=== PATIENT | male | born 1970 | race Two or more races ===

== ENCOUNTER → 2025-09-18 | Emergency (ER) | payer BC ==
[~2025-09-18] VITALS: Ht 175.3 cm; Wt 88.5 kg
[~2025-09-18] MED LIST: BUDESONIDE 0.5 MG/2 ML AMPUL.NEB IH ONE; GUAIFEN/DEXTROMETHORPHAN/PE 10 ML BLIST.PACK PO ONE; GUAIFENESIN 200 MG/10 ML BLIST.PACK PO ONE; IPRATROPIUM/ALBUTEROL SULFATE 3 ML AMPUL.NEB IH SCH; MUCUS ER1200 MG PO; PREDNISONE20 MG PO; TAMIFLU45 MG PO; TUSSIN15 MG/5 M1 PO
[2025-09-18 11:27] LABS: BASO % 0.5 % (0.1-1.2); EOS # 0.25 (0.04-0.54); EOS % 2.7 % (0.7-7.0); LYMPH # 2.96 (1.18-3.74); LYMPH % 32.2 % (19.3-53.1); MEAN PLATELET VOLUME 8.90 fl (9.4-12.4); MONO # 0.53 (0.24-0.82); MONO % 5.8 % (4.7-12.5); NEUT # 5.25 (1.56-6.13); NEUT % 57.1 % (34.0-71.1); RED CELL DISTRIBUTION WIDTH 13.2 % (11.6-14.4)
[2025-09-18 11:38] LABS: COVID-19 AG NEGATIVE (NEGATIVE)
[2025-09-18 11:42] LABS: ALT/SGPT 47.0 U/L (12-78); AST/SGOT 14.0 U/L (15-37); BILIRUBIN TOTAL 0.84 mg/dL (0.3-1.2); BUN CREA RATIO 16.0 (7.0-25.0); CREATININE SERUM 0.82 mg/dL (0.70-1.30); GFR 97.91; GLOBULINA 3.7 G/DL (2.4-3.5); GLUCOSE FASTING 95.0 mg/dL (65-100); OSMOLALITY SERUM 281.0 MOSM/KG (275-295)
== END | disposition home or self-care (01) ==
LOC: ER 07:38
PROVIDERS: Preventive Medicine Public Health & General Preventive Medicine
DX: R05.8 Other specified cough (principal); J40 Bronchitis, not specified as acute or chronic; J00 Acute nasopharyngitis [common cold]; Z20.822 Contact with and (suspected) exposure to COVID-19